=== PATIENT | male | born 1965 | race Caucasian/White ===

== ENCOUNTER 2019-01-01 16:37 | Emergency (ER) | payer OTHER ==
--- NOTE | 2019-01-01 17:02 | ERPHSYRPT ---
- History of Present Illness Time Seen by Provider: 01/01/19 16:50 Source: patient Exam Limitations: no limitations Patient Subjective Stated Complaint: pt here for blurred vision to both eyes started at 1535 today, worse in rgiht eye, he states it is hazy, denies any injury Triage Nursing Assessment: pt alert, walked in, resp easy, skin w/d/p. 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 Patient denies any loss of visual forrest or any recent trauma to his eyes. Timing/Duration: today, hour(s) (1) Location: bilateral eyes Severity: moderate Apparent Injury: no Associated Symptoms: blurred vision, No pain, No burning, No itching, No sensitivity to light, No redness, No matting, No eyelid swelling, No foreign body sensation, No decreased vision, No double vision Visual Assistive Devices: None Chemical Exposure: No Trauma: No Welding Arc/Tanning Bed Exposure: No Allergies/Adverse Reactions: No Known Drug Allergies Allergy (Unverified 01/01/19 16:50) Home Medications: No Reportable Medications [No Reported Medications] 01/01/19 [History] Hx Tetanus, Diphtheria Vaccination/Date Given: No Hx Influenza Vaccination/Date Given: No Hx Pneumococcal Vaccination/Date Given: No Immunizations Up to Date: Yes - Review of Systems Constitutional: No Fever, No Chills, No Fatigue, No Malaise Eyes: Vision Changes, No Discharge, No Eye Pain, No Eye Redness, No Itchy, No Photophobia, No Tearing, No Double Vision, No Foreign Body Sensation Ears, Nose, & Throat: No Ear Pain, No Nose Congestion, No Throat Pain, No Hoarse , No Painful Swallowing Respiratory: No Cough, No Dyspnea Cardiac: No Chest Pain, No Palpitations Abdominal/Gastrointestinal: No Abdominal Pain, No Nausea, No Vomiting Genitourinary Symptoms: No Hematuria, No Flank Pain Musculoskeletal: No Back Pain, No Neck Pain, No Joint Pain Skin: No Pruritis, No Rash Neurological: No Dizziness, No Focal Weakness, No Gait Changes, No Headache, No Lethargy, No Parasthesia, No Sensory Changes, No Tremors, No Vertigo Psychological: No Anxiety Endocrine: No Polydipsia, No Excessive Sweating Hematologic/Lymphatic: No Easy Bleeding, No Easy Bruising All Other Systems: Reviewed and Negative - Past Medical History Pertinent Past Medical History: No - Past Surgical History Past Surgical History: Yes Musculoskeletal: Orthopedic Surgery Other Surgical History: kidney stone removal - Social History Smoking Status: Never smoker Exposure to second hand smoke: No Drug Use: none Patient Lives Alone: No - Nursing Vital Signs Nursing Vital Signs: Initial Vital Signs Temperature 98.2 F 01/01/19 16:44 Pulse Rate 74 01/01/19 16:44 Respiratory Rate 16 01/01/19 16:44 Blood Pressure 146/84 01/01/19 16:44 O2 Sat by Pulse Oximetry 97 01/01/19 16:44 Pain Scale Pain Intensity 0 - Physical Exam General Appearance: no apparent distress, alert Vision Acuity Degree Evaluation Phase: Uncorrected Vision Acuity Right Eye: no loss of visual acuity in any visual field Vision Acuity Left Eye: no loss of visual acuity in any visual field Eye Exam: bilateral eye: normal inspection, PERRL, EOMI (negative papilledema, negative hemorrhages, normal appearing vasculature with no abnormalities appreciated to fundoscopic examinations bilaterally) Ears, Nose, Throat Exam: normal ENT inspection, TMs normal, pharynx normal, moist mucous membranes, No TM abnormal (R), No TM abnormal (L), No pharyngeal erythema Neck Exam: normal inspection, non-tender, supple, full range of motion, No meningismus, No Brudzinski, No Kernig's, No lymphadenopathy, No midline tenderness Respiratory Exam: normal breath sounds, lungs clear, airway intact, No chest tenderness, No respiratory distress, No diminished breath sounds, No accessory muscle use, No crackles/rales, No rhonchi, No wheezing, No stridor, No pleural rub Cardiovascular Exam: regular rate/rhythm, normal heart sounds, normal peripheral pulses, capillary refill <2 sec Gastrointestinal Exam: soft, normal bowel sounds, No tenderness, No distention, No mass, No guarding, No pulsatile mass, No rebound Extremity Exam: normal inspection, normal range of motion, pelvis stable, No calf tenderness, No niya's sign, No swelling Neurologic: alert, oriented x 3, cooperative, 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, normal mood/affect, nml cerebellar function, sensation nml, other (NIHSS: 0), No uncooperative, No motor weakness Skin Exam: normal color, warm, dry, No rash SpO2 Interpretation: normal SpO2: 97 O2 Delivery: Room Air - Course Nursing assessment & vital signs reviewed: Yes EKG Interpreted by Me: RATE (73), Sinus Rhythm, NORMAL AXIS, NORMAL INTERVALS, NORMAL QRS, NORMAL ST-T, Other (no previous EKG for comparison) - CT Exams Head CT Interpretation: Negative, No/Intracranial Hemorrhag, Other (per Radiologist for interpretation: Normal CT head without contrast exam; normal appearing brain parenchyma, ventricles, and bony calvarium. Visualized paranasal sinuses and mastoid air cells are clear) Ordered Tests: Active Orders 24 hr Category Date Time Status Glass Mechanic STAT Care 01/01/19 17:01 Active EKG-ER Only STAT Care 01/01/19 17:01 Active IV Insertion STAT Care 01/01/19 17:01 Active NPO (ED) STAT Care 01/01/19 17:01 Active Pulse Oximetry (ED) STAT Care 01/01/19 17:01 Active Visual Acuity STAT Care 01/01/19 16:51 Active HEAD WITHOUT CONTRAST [CT] Stat Exams 01/01/19 17:01 Completed CBC W DIFF Stat Lab 01/01/19 17:40 Completed CMP Stat Lab 01/01/19 17:40 Completed ETHYL ALCOHOL Stat Lab 01/01/19 17:40 Completed PROTIME WITH INR Stat Lab 01/01/19 17:40 Completed PTT Stat Lab 01/01/19 17:40 Completed TROPONIN Q3H Lab 01/01/19 17:40 Completed TROPONIN Q3H Lab 01/01/19 20:15 Ordered TROPONIN Q3H Lab 01/01/19 23:15 Ordered TROPONIN Q3H Lab 01/02/19 02:15 Ordered TROPONIN Q3H Lab 01/02/19 05:15 Ordered UA W/RFX UR CULTURE Stat Lab 01/01/19 19:00 Completed Urine Triage Profile Stat Lab 01/01/19 Completed Lab/Rad Data: Laboratory Result Diagrams 01/01/19 17:40 01/01/19 17:40 Laboratory Results 01/01/19 01/01/19 01/01/19 Range/Units Unknown 19:00 17:40 WBC (4.0-10.5) K/mm3 RBC (4.1-5.6) M/mm3 Hgb (12.5-18.0) gm/dl Hct (42-50) % MCV (78-100) fl MCH (26-32) pg MCHC (32-36) g/dl RDW (11.5-14.0) % Plt Count (150-450) K/mm3 MPV (6-9.5) fl Gran % (36.0-66.0) % Eos # (Auto) (0-0.5) Absolute Lymphs (auto) (1.0-4.6) Absolute Monos (auto) (0.0-1.3) Lymphocytes % (24.0-44.0) % Monocytes % (0.0-12.0) % Eosinophils % (0.00-5.0) % Basophils % (0.0-0.4) % Absolute Granulocytes (1.4-6.9) Basophils # (0-0.4) PT (8.83-12.87) SECONDS INR (0.8-3.0) APTT (24.1-36.1) SECONDS Sodium (137-145) mmol/L Potassium (3.5-5.1) mmol/L Chloride (98-107) mmol/L Carbon Dioxide (22-30) mmol/L Anion Gap (5-15) MEQ/L BUN (9-20) mg/dL Creatinine (0.66-1.25) mg/dL Estimated GFR ML/MIN Glucose (74-106) mg/dL Calcium (8.4-10.2) mg/dL Total Bilirubin (0.2-1.3) mg/dL AST (17-59) U/L ALT (0-50) U/L Alkaline Phosphatase (38-126) U/L Troponin I < 0.012 (0.000-0.034) ng/mL Serum Total Protein (6.3-8.2) g/dL Albumin (3.5-5.0) g/dL Urine Color YELLOW (YELLOW) Urine Appearance CLEAR (CLEAR) Urine pH 6.0 (5-6) Ur Specific [place] 1.020 (1.005-1.025) Urine Protein NEGATIVE (Negative) Urine Ketones NEGATIVE (NEGATIVE) Urine Blood NEGATIVE (0-5) Ramsey/ul Urine Nitrite NEGATIVE (NEGATIVE) Urine Bilirubin NEGATIVE (NEGATIVE) Urine Urobilinogen NEGATIVE (0-1) mg/dL Ur Leukocyte Esterase NEGATIVE (NEGATIVE) Urine WBC (Auto) NONE (0-5) /HPF Urine Mucus (Auto) SLIGHT (NEGATIVE) /HPF Urine Culture Reflexed NO (NO) Urine Glucose NEGATIVE (NEGATIVE) mg/dL Urine Opiates Level NEGATIVE (NEGATIVE) Ur Methadone NEGATIVE (NEGATIVE) Urine Barbiturates NEGATIVE (NEGATIVE) Ur Phencyclidine (PCP) NEGATIVE (NEGATIVE) Urine Amphetamine NEGATIVE (NEGATIVE) U Benzodiazepine Level NEGATIVE (NEGATIVE) Urine Cocaine NEGATIVE (NEGATIVE) Urine Marijuana (THC) NEGATIVE (NEGATIVE) Ethyl Alcohol (0-10) mg/dL 01/01/19 01/01/19 01/01/19 Range/Units 17:40 17:40 17:40 WBC 6.9 (4.0-10.5) K/mm3 RBC 4.62 (4.1-5.6) M/mm3 Hgb 14.6 (12.5-18.0) gm/dl Hct 43.5 (42-50) % MCV 94.2 (78-100) fl MCH 31.6 (26-32) pg MCHC 33.6 (32-36) g/dl RDW 13.0 (11.5-14.0) % Plt Count 223 (150-450) K/mm3 MPV 9.9 H (6-9.5) fl Gran % 66.6 H (36.0-66.0) % Eos # (Auto) 0.02 (0-0.5) Absolute Lymphs (auto) 1.81 (1.0-4.6) Absolute Monos (auto) 0.46 (0.0-1.3) Lymphocytes % 26.3 (24.0-44.0) % Monocytes % 6.7 (0.0-12.0) % Eosinophils % 0.3 (0.00-5.0) % Basophils % 0.1 (0.0-0.4) % Absolute Granulocytes 4.58 (1.4-6.9) Basophils # 0.01 (0-0.4) PT 12.3 (8.83-12.87) SECONDS INR 1.09 (0.8-3.0) APTT 30.5 (24.1-36.1) SECONDS Sodium 144 (137-145) mmol/L Potassium 4.2 (3.5-5.1) mmol/L Chloride 108 H (98-107) mmol/L Carbon Dioxide 27 (22-30) mmol/L Anion Gap 13.8 (5-15) MEQ/L BUN 25 H (9-20) mg/dL Creatinine 1.09 (0.66-1.25) mg/dL Estimated GFR > 60.0 ML/MIN Glucose 97 (74-106) mg/dL Calcium 9.4 (8.4-10.2) mg/dL Total Bilirubin 0.40 (0.2-1.3) mg/dL AST 20 (17-59) U/L ALT 25 (0-50) U/L Alkaline Phosphatase 63 (38-126) U/L Troponin I (0.000-0.034) ng/mL Serum Total Protein 6.9 (6.3-8.2) g/dL Albumin 4.1 (3.5-5.0) g/dL Urine Color (YELLOW) Urine Appearance (CLEAR) Urine pH (5-6) Ur Specific [place] (1.005-1.025) Urine Protein (Negative) Urine Ketones (NEGATIVE) Urine Blood (0-5) Ramsey/ul Urine Nitrite (NEGATIVE) Urine Bilirubin (NEGATIVE) Urine Urobilinogen (0-1) mg/dL Ur Leukocyte Esterase (NEGATIVE) Urine WBC (Auto) (0-5) /HPF Urine Mucus (Auto) (NEGATIVE) /HPF Urine Culture Reflexed (NO) Urine Glucose (NEGATIVE) mg/dL Urine Opiates Level (NEGATIVE) Ur Methadone (NEGATIVE) Urine Barbiturates (NEGATIVE) Ur Phencyclidine (PCP) (NEGATIVE) Urine Amphetamine (NEGATIVE) U Benzodiazepine Level (NEGATIVE) Urine Cocaine (NEGATIVE) Urine Marijuana (THC) (NEGATIVE) Ethyl Alcohol < 10 (0-10) mg/dL - Progress Progress: unchanged Progress Note: 01/01/19 19:57 Patient has no focal neurologic deficits on repeat examination and no visual complaints. Patient has remained in sinus rhythm on the alarm security or surveillance monitor throughout his time in the emergency department. 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 Your labwork, EKG, Urine tests, CT scan of your head did not show any significant abnormalities. Return immediately back to the emergency department if any double vision, loss of vision, weakness, loss of sensation, facial droop, speech change or any other concerning sign or symptom that was not present at today's emergency department visit for immediate re- evaluation in the emergency department. Forms: Work/School Release Form
--- NOTE | 2019-01-01 17:27 | XRAY ---
Indication: Blurry vision. Multiple contiguous axial images obtained through the head without contrast. Comparison: None Normal appearing brain parenchyma, ventricles, and bony calvarium. Visualized paranasal sinuses and mastoid air cells are clear. Impression: Normal CT head without contrast exam. CTDI 68.81
[2019-01-01 17:44] LABS: Absolute Neutrophil Ct (ANC) 4.58 (1.4-6.9); BASOPHIL % 0.1 % (0.0-0.4); Basophil (Absolute #) 0.01 (0-0.4); Eosinophil % 0.3 % (0.00-5.0); Eosinophil (Absolute #) 0.02 (0-0.5); Hematocrit 43.5 % (42-50); Hemoglobin 14.6 gm/dl (12.5-18.0); Lymphocyte (Absolute #) 1.81 (1.0-4.6); Lymphocytes % 26.3 % (24.0-44.0); Mean Cell Volume 94.2 fl (78-100); Mean Corpuscular Hemoglobin 31.6 pg (26-32); Mean Corpuscular Hgb Concent. 33.6 g/dl (32-36); Mean Platelet Volume 9.9 fl (6-9.5); Monocyte (Absolute #) 0.46 (0.0-1.3); Monocytes % 6.7 % (0.0-12.0); Neutrophil % 66.6 % (36.0-66.0); Platelet Count 223 K/mm3 (150-450); Red Blood Count 4.62 M/mm3 (4.1-5.6); White Blood Count 6.9 K/mm3 (4.0-10.5)
[2019-01-01 18:01] LABS: INR 1.09 (0.8-3.0); PROTIME 12.3 SECONDS (8.83-12.87)
[2019-01-01 18:04] LABS: PTT 30.5 SECONDS (24.1-36.1)
[2019-01-01 18:05] LABS: ALBUMIN 4.1 g/dL (3.5-5.0); ALKALINE PHOSPHATASE 63 U/L (38-126); ANION GAP 13.8 MEQ/L (5-15); BLOOD UREA NITROGEN 25 mg/dL (9-20); CHLORIDE 108 mmol/L (98-107); Calcium 9.4 mg/dL (8.4-10.2); Carbon Dioxide 27 mmol/L (22-30); Creatinine 1 1.09 mg/dL (0.66-1.25); Glucose 97 mg/dL (74-106); Potassium 4.2 mmol/L (3.5-5.1); SGOT/AST 20 U/L (17-59); SGPT/ALT 25 U/L (0-50); SODIUM 144 mmol/L (137-145); Total Protein 6.9 g/dL (6.3-8.2)
[2019-01-01 18:26] LABS: ETHYL ALCOHOL < 10 mg/dL (0-10)
[2019-01-01 19:28] LABS: Appearance CLEAR (CLEAR); Bilirubin NEGATIVE (NEGATIVE); Blood NEGATIVE Ery/ul (0-5); Glucose NEGATIVE (NEGATIVE); Ketones NEGATIVE (NEGATIVE); Leukocyte Esterase NEGATIVE (NEGATIVE); Mucus SLIGHT /HPF (NEGATIVE); Nitrite NEGATIVE (NEGATIVE); Protein,Urine Dip NEGATIVE (Negative); Urobilinogen NEGATIVE mg/dL (0-1)
[2019-01-01 19:43] LABS: Amphetamine,Urine NEGATIVE (NEGATIVE); Barbiturate,Urine NEGATIVE (NEGATIVE); Benzodiazepine,Urine NEGATIVE (NEGATIVE); Cocaine,Urine NEGATIVE (NEGATIVE); Methadone,Urine NEGATIVE (NEGATIVE); Opiate,Urine NEGATIVE (NEGATIVE); PCP,Urine NEGATIVE (NEGATIVE); THC,Urine NEGATIVE (NEGATIVE)
[2019-01-01 20:05] VITALS: BP 123/80; PULSE 68
[2019-01-01 20:06] VITALS: O2SAT 97
== END 2019-01-01 20:23 | disposition home or self-care (01) ==
LOC: ED 16:37
DX: H53.8 Other visual disturbances (principal); H52.13 Myopia, bilateral; R03.0 Elevated blood-pressure reading, without diagnosis of hypertension
CPT/HCPCS: 36000; 36415; 70450; 80053; 80307; 81001; 84484; 85025; 85610; 85730; 93005; 93041; 94760; 99284; G0480